=== PATIENT | male | born 2000 | race African-American/Black ===

== ENCOUNTER → 2020-11-28 06:34 | Outpatient (CLI) | payer OTHER, SELFPAY ==
[2020-11-28 20:06] LABS: SARS-CoV-2 RNA PCR Negative
== END ==
PROVIDERS: PCP Emergency Medicine; Visit Provider Emergency Medicine
DX: Z20.822 Contact with and (suspected) exposure to COVID-19 (principal); R09.89 Other specified symptoms and signs involving the circulatory and respiratory systems
CPT/HCPCS: C9803; U0003; U0005

== ENCOUNTER 2024-11-01 12:06 | Emergency (ER) | payer OTHER, SELFPAY ==
--- NOTE | ~2024-11-01 | CT_ITS ---
EXAMINATION: CT brain wo con DATE: 11/01/2024 13:47 INDICATION: Syncope TECHNIQUE: Computed tomography (CT) of the head was performed without intravenous contrast. Sagittal and coronal reconstructions were performed. The mA was adjusted according to patient size. Iterative reconstruction technique was employed. The dose-length product was 605.33 mGy-cm. COMPARISON: None FINDINGS: No acute intracranial hemorrhage, acute infarction or abnormal extra axial fluid collection. Ventricl es are normal and symmetric. No mass/mass effect. Mucosal thickening in the right maxillary sinus whi ch appears small with thickened sclerotic beyer consistent with sequela of chronic sinusitis. The orb its and mastoid air cells are normal. IMPRESSION: 1. Normal brain. Reviewed, dictated and finalized at location A. IMPRESSION: 1. Normal brain.
--- NOTE | ~2024-11-01 | XR_ITS ---
XR chest 2V Ordering provider: Ellie Hebert History: 23 years Male with . syncopal episode . Comparison: None. FINDINGS: MEDIASTINUM: The cardiac silhouette is not enlarged. LUNGS: No infiltrates, effusions or pneumothorax. OTHER: No free air under the diaphragm. IMPRESSION: No acute cardiopulmonary pathology. Reviewed, dictated and finalized at location A.
[2024-11-01 12:26] VITALS: BP 152/94; PULSE 96; RESP 21; O2SAT 100
--- NOTE | 2024-11-01 12:32 | ECG_ITS ---
Test Date: 2024-11-01 12:39:23 Measurements Intervals [place] Rate: 93 P: 45 IA: 156 QRS: 38 QRSD: 90 T: 36 QT: 361 QTc: 450 Interpretive Statements SINUS RHYTHM NONSPECIFIC T-WAVE ABNORMALITY- INFERIOR LEADS BASELINE ARTIFACT- II, III, AVL BORDERLINE ECG No previous ECG available for comparison Electronically Signed On 11-01-2024 12:53:09 CDT by Paul Butterfield D.O.
[2024-11-01 12:38] LABS: Glucose Point of Care 134 mg/dl (65-105)
[2024-11-01 12:50] VITALS: O2SAT 100
[2024-11-01 12:56] LABS: Basophils Percent Auto 0.4 % (0.2-1.2); Eosinophils Absolute Auto 0.1 K/mm3 (0-0.3); Eosinophils Percent Auto 1.3 % (0-4.4); Hematocrit 47.3 % (42.0-52.0); Hemoglobin 15.2 g/dL (14.0-18.0); Immature Granulocyte Absolute 0.05 K/mm3 (0.00-0.031); Immature Granulocyte Percent A 0.7 % (0-0.5); Lymphocytes Absolute Auto 2.22 K/mm3 (0.9-3.2); Lymphocytes Percent Auto 32.4 % (18.3-44.2); Mean Corpuscular HGB Conc 32.1 g/dl (32-36); Mean Corpuscular Volume 90.1 fl (80-100); Monocytes Absolute Auto 0.5 K/mm3 (0.1-0.6); Neutrophils Percent Auto 58.2 % (45.5-73.1); Platelet Count Result 253 k/mm3 (150-375); Red Blood Count 5.25 M/mm3 (4.6-6.20); Red Cell Distribution Width 14.4 % (11.5-14.5); White Blood Count 6.9 K/mm3 (4.5-10.0)
[2024-11-01 13:06] LABS: Alanine Aminotransferase 26 U/L (6-50); Alkaline Phosphatase 45 U/L (38-126); Anion Gap 11 mmol/L (4-12); Aspartate Amino Transferase 25 U/L (17-59); Bilirubin,Total 0.6 mg/dL (0.2-1.3); Blood Urea Nitrogen 10 mg/dL (9-20); Calcium 8.8 mg/dL (8.4-10.2); Carbon Dioxide 21 mmol/L (22-30); Chloride 107 mmol/L (98-107); Estimated CRCL calculation 137 ml/min; Estimated Glomerular Filt Rate > 60; Glucose 139 mg/dL (65-110); Potassium 3.6 mmol/L (3.4-5.0); Sodium 139 mmol/L (137-145)
[2024-11-01 13:31] VITALS: BP 141/82; PULSE 82; RESP 18; O2SAT 100
[2024-11-01] MEDS: ONDANSETRON INJ 4 MG/2 ML VIAL IV PUSH (13:42)
[2024-11-01 13:54] LABS: Ethanol < 10 mg/dL (<10)
[2024-11-01 14:09] LABS: Troponin I < 0.012 ng/mL (0.000-0.034)
--- NOTE | 2024-11-01 14:09 | ED.SYNCOPE ---
HPI - Syncope General Chief Complaint: Syncope Stated Complaint: Abd pain, shortness of breath, confusion Time Seen by Provider: 11/01/24 13:30 History of Present Illness HPI narrative: 23-year-old otherwise healthy male presenting to the emergency department after an unwitnessed syncopal event at home. Patient states that he was otherwise in his normal state of health recently. No recent injuries, illnesses or hospital visits. He was up late in the evening and into this morning till 6:00 a.m. playing video games. He was found semiconscious and appeared postictal when family heard a loud thud and went upstairs to investigate. Patient was in out of consciousness and not able to articulate was going on. This lasted for about 10-20 minutes and then he regained full consciousness. He does not remember the event. Does not remember waking up this morning. Denies any fever, chills, endorses some mild headache diffusely and some nauseousness. No abdominal pain, chest pain, shortness a breath, back pain. He was otherwise in her normal state of health. He endorses some pain in his mouth on the right side. No history of seizures. No history of febrile seizure in childhood. No history of epilepsy. No family history of epilepsy. Related Data Allergies Allergy/AdvReac Type Severity Reaction Status Date / Time No Known Allergies Allergy Verified 11/01/24 12:09 Review of Systems Review of Systems: As reviewed above in HPI Exam Narrative: GENERAL: [Well-appearing, well-nourished, and in no acute distress.] HEAD: [Normocephalic, atraumatic.] EYES: [PERRLA and EOMI.] ENT: Nares clear, no rhinorrhea or epistaxis. Mucous membranes moist. There appears to be a lateral tongue abrasion on the right side without any bleeding or laceration. NECK: Supple. CHEST: [Clear to auscultation. No respiratory distress.] HEART: [Regular rate and rhythm]. No murmur heard. [Normal peripheral pulses.] ABDOMEN: [Soft, nondistended], [nontender], [No rigidity or guarding] EXTREMITIES: Normal range of motion. [No edema.] SKIN: Warm, dry, no rash. NEURO: [No focal deficits]. Alert and oriented [x3.] Full range of motion of all extremities, normal strength and sensation throughout. PSYCH: [Normal mood and affect.] Course Vital Signs Vital signs: Vital Signs Pulse Rate 96 11/01/24 12:26 Respiratory Rate 21 H 11/01/24 12:26 Blood Pressure 152/94 H 11/01/24 12:26 Pulse Oximetry 100 11/01/24 12:26 Oxygen Delivery Room Air 11/01/24 12:26 Pulse Rate 86 11/01/24 15:23 Respiratory Rate 22 H 11/01/24 15:23 Blood Pressure 142/99 H 11/01/24 15:23 Pulse Oximetry 97 11/01/24 15:23 Oxygen Delivery Room Air 11/01/24 12:50 MDM - Syncope MDM Narrative Medical decision making narrative: 23-year-old otherwise healthy male presenting with an unwitnessed syncopal event suspicious for potential for seizure. Patient was otherwise in her normal state of health, up until 6 in the morning playing video games and then family found him after hearing a loud thought and a fall upstairs. This happened around 11:00 a.m.. Patient was in and out of consciousness and appeared postictal for about 10-20 minutes before regaining full consciousness. Does not remember the event. Does have a lateral tongue abrasion on the right side and history that seems consistent with potential first-time seizure. Likely triggered by being up late in the evening and waking up early. Patient has no family history of seizure disorder, no history of epilepsy or febrile seizures in childhood. He otherwise appears well, not any acute distress. Vital signs are within normal limits aside from some mild elevated blood pressure. Not severe range. Given this is a first-time seizure event will also investigate other causes such as potential vasovagal event, dehydration, cardiac syncope although less likely. Broad workup was ordered including CBC, CMP, troponin, alcohol level, chest x-ray, CT of the head. He was given Zofran, Toradol and fluid bolus. 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 Upon re-evaluation patient had complete symptomatic resolution feeling significantly improved. No leukocytosis or anemia. Normal platelet count. Electrolytes unremarkable. Normal anion gap. Normal glucose. Normal LFTs and renal function. Negative troponin. Negative alcohol level. Chest x-ray without any findings. CT head without any acute intracranial process. EKG with sinus rhythm, no signs of ectopy or ischemia. Patient's historical features and clinical exam were consistent with a first-time seizure. I discussed the case with the on-call neurologist Dr. Rizvi who will see him on outpatient basis. No indications start medications at this time as he has been monitored in the ED without any recurrent seizure activity and was likely provoked base based on history. I discussed with the patient and the family driving restrictions as well as close follow-up with Neurology which they verbalized understanding. They were told to return if there is any recurrent seizure activity or any new concerns before seeing the neurologist. Patient and family comfortable with discharge home at this time. Medical Records Attestation: I reviewed the patient's medical records. Lab Data Attestation: I reviewed the patient's lab results. 11/01/24 12:48 11/01/24 12:48 Labs: Lab Results 11/01/24 11/01/24 11/01/24 Range/Units 12:35 12:48 16:19 WBC 6.9 (4.5-10.0) K/mm3 RBC 5.25 (4.6-6.20) M/mm3 Hgb 15.2 (14.0-18.0) g/dL Hct 47.3 (42.0-52.0) % MCV 90.1 (80-100) fl MCH 29.0 (26-34) pg MCHC 32.1 (32-36) g/dl RDW 14.4 (11.5-14.5) % Plt Count 253 (150-375) k/mm3 MPV 9.0 (7.4-10.4) fl Immature Gran % (Auto) 0.7 H (0-0.5) % Neut % (Auto) 58.2 (45.5-73.1) % Lymph % (Auto) 32.4 (18.3-44.2) % [place] % (Auto) 7.0 (2.6-8.5) % Eos % (Auto) 1.3 (0-4.4) % Baso % (Auto) 0.4 (0.2-1.2) % Lymph # (Auto) 2.22 (0.9-3.2) K/mm3 [place] # (Auto) 0.5 (0.1-0.6) K/mm3 Eos # (Auto) 0.1 (0-0.3) K/mm3 Baso # (Auto) 0.0 (0.0-0.1) K/mm3 Abs Immat Gran (auto) 0.05 H (0.00-0.031) K/mm3 Absolute Neuts (auto) 4.0 (1.3-6.7) K/mm3 Absolute Nucleated RBC 0.000 (0.0-0.012) K/mm3 Nucleated RBC % 0.0 (0.0-0.2) % Sodium 139 (137-145) mmol/L Potassium 3.6 (3.4-5.0) mmol/L Chloride 107 (98-107) mmol/L Carbon Dioxide 21 L (22-30) mmol/L Anion Gap 11 (4-12) mmol/L BUN 10 (9-20) mg/dL Creatinine 1.05 (0.7-1.3) mg/dL Estim Creat Clear Calc 137 ml/min Estimated GFR > 60 (59 - ) Glucose 139 H (65-110) mg/dL POC Capillary Glucose 134 H (65-105) mg/dl Calcium 8.8 (8.4-10.2) mg/dL Total Bilirubin 0.6 (0.2-1.3) mg/dL AST 25 (17-59) U/L ALT 26 (6-50) U/L Alkaline Phosphatase 45 (38-126) U/L Troponin I < 0.012 Cancelled (0.000-0.034) ng/mL Total Protein 7.0 (6.3-8.2) g/dL Albumin 4.0 (3.5-5.1) g/dL Ethyl Alcohol < 10 (<10) mg/dL Imaging Data Attestation: I personally reviewed and interpreted this imaging study as follows: My impression: Impressions Chest X-Ray 11/01/24 13:21 IMPRESSION: No acute cardiopulmonary pathology. Head CT 11/01/24 14:00 IMPRESSION: 1. Normal brain. Discharge Plan Discharge Clinical Impression: First time seizure Patient Disposition: Home Condition: Stable Instructions: Antibiotic Form, New-Onset Seizure in Adults (ED) Additional Instructions: Your laboratory studies and examination are reassuring. You likely had a first-time seizure provoked by the sleep deprivation and loud noises and flashing lights. We recommend refraining from driving or operating heavy machinery for up to 3 months since the last seizure or until you are cleared by the neurologist. Please call the provided neurologist for close outpatient visit. Return with any new seizure activity or any other concerns. Follow-up with your regular doctor as well as the Neurology team. Patient Language: Cypriot Follow-up/Referrals: Deanna Rizvi MD [Physician] - 1 Week (1st time seizure) Yonny Edwards MD [Primary Care Provider] - Time of Disposition: 16:41
[2024-11-01] MEDS: LACTATED RINGERS 1,000 ML 999 ML IV CONT (14:20)
[2024-11-01 14:21] VITALS: BP 156/105; PULSE 73; RESP 23; O2SAT 97
[2024-11-01] MEDS: KETOROLAC 15 MG/ML VIAL (*BKC) IV PUSH (14:21)
[2024-11-01 15:23] VITALS: BP 142/99; PULSE 86; RESP 22; O2SAT 97
[2024-11-01 17:01] VITALS: PULSE 86; RESP 19; TEMP 37; O2SAT 99
== END 2024-11-01 17:03 | disposition home or self-care (01) ==
PROVIDERS: General Practice; Emergency Provider Student in an Organized Health Care Education/Training Program; PCP Emergency Medicine
DX: R56.9 Unspecified convulsions (principal); R94.31 Abnormal electrocardiogram [ECG] [EKG]
CPT/HCPCS: 36415; 70450; 71046; 80053; 82077; 82948; 84484; 85025; 93005; 96361; 96374; 96375; 99284; J1885; J2405; J7120

== ENCOUNTER 2025-01-05 10:58 | Emergency (ER) | payer OTHER, SELFPAY ==
--- NOTE | ~2025-01-05 | XR_ITS ---
EXAMINATION: XR chest 2V DATE: 01/05/2025 12:21 INDICATION: Seizure. Nausea. TECHNIQUE: frontal and lateral views of the chest were obtained. COMPARISON: Chest radiograph dated 11/01/2024 FINDINGS: Evaluation of fine pulmonary parenchymal detail mildly limited by body habitus. No focal airspace opa cities, pulmonary edema, pleural effusion or pneumothorax. The cardiomediastinal silhouette is normal . IMPRESSION: 1. No acute cardiopulmonary disease. Reviewed, dictated and finalized at location A.
[2025-01-05 10:58] VITALS: BP 128/80; PULSE 96; RESP 11; O2SAT 92
[2025-01-05 11:05] VITALS: O2SAT 97
--- NOTE | 2025-01-05 11:07 | ECG_ITS ---
Test Date: 2025-01-05 11:09:03 Measurements Intervals [place] Rate: 86 P: 30 DC: 149 QRS: 11 QRSD: 87 T: 30 QT: 364 QTc: 436 Interpretive Statements SINUS RHYTHM NONSPECIFIC T-WAVE ABNORMALITY- INF/HIGH LAT LEADS BORDERLINE ECG Compared to ECG 11/01/2024 12:39:23 NO SIGNIFICANT CHANGE Electronically Signed On 01-05-2025 12:35:05 CDT by Paul Butterfield D.O.
[2025-01-05 11:19] LABS: Basophils Percent Auto 0.3 % (0.2-1.2); Eosinophils Absolute Auto 0.1 K/mm3 (0-0.3); Eosinophils Percent Auto 1.1 % (0-4.4); Hematocrit 46.8 % (42.0-52.0); Hemoglobin 14.4 g/dL (14.0-18.0); Immature Granulocyte Absolute 0.07 K/mm3 (0.00-0.031); Immature Granulocyte Percent A 0.8 % (0-0.5); Lymphocytes Absolute Auto 3.79 K/mm3 (0.9-3.2); Lymphocytes Percent Auto 42.6 % (18.3-44.2); Mean Corpuscular HGB Conc 30.8 g/dl (32-36); Mean Corpuscular Hemoglobin 28.2 pg (26-34); Mean Corpuscular Volume 91.6 fl (80-100); Mean Platelet Volume 9.1 fl (7.4-10.4); Monocytes Absolute Auto 0.6 K/mm3 (0.1-0.6); Monocytes Percent Auto 7.2 % (2.6-8.5); Neutrophils Absolute Auto 4.3 K/mm3 (1.3-6.7); Platelet Count Result 255 k/mm3 (150-375); Red Blood Count 5.11 M/mm3 (4.6-6.20); Red Cell Distribution Width 13.9 % (11.5-14.5); White Blood Count 8.9 K/mm3 (4.5-10.0)
[2025-01-05 11:30] LABS: Alanine Aminotransferase 28 U/L (6-50); Albumin Level 3.8 g/dL (3.5-5.1); Alkaline Phosphatase 38 U/L (38-126); Anion Gap 15 mmol/L (4-12); Aspartate Amino Transferase 30 U/L (17-59); Bilirubin,Total 0.3 mg/dL (0.2-1.3); Blood Urea Nitrogen 10 mg/dL (9-20); Calcium 8.7 mg/dL (8.4-10.2); Carbon Dioxide 16 mmol/L (22-30); Chloride 109 mmol/L (98-107); Estimated CRCL calculation 125 ml/min; Estimated Glomerular Filt Rate > 60; Glucose 165 mg/dL (65-110); Potassium 3.7 mmol/L (3.4-5.0); Sodium 140 mmol/L (137-145)
[2025-01-05 11:37] LABS: Lactic Acid Reflex 6.4 mmol/L (0.7-2.0)
[2025-01-05] MEDS: SODIUM CHLORIDE 0.9% IV 1,000 ML 999 ML IV CONT (11:40)
[2025-01-05 11:44] VITALS: O2SAT 95
--- NOTE | 2025-01-05 12:03 | ED_ITS ---
HPI - Seizure General Chief Complaint: Seizure Stated Complaint: ?seizure History of Present Illness HPI Narrative: Patient is a 24-year-old male who presents ER with concerns for seizure. Family heard patient follow up stairs went to check on. He had loss of consciousness that had a prolonged postictal period as witnessed by the EMS personnel. He has bruising to his tongue from tongue biting. He is coming around. Had a similar episode in October of 2024. He is scheduled to see a neurologist in a few days. He is not currently on anti epileptic medications. Patient does stay up late and plays video games. He also uses marijuana. No additional complaints or concerns at this time. Related Data Allergies Allergy/AdvReac Type Severity Reaction Status Date / Time No Known Allergies Allergy Verified 11/01/24 12:09 Review of Systems 2 Review of Systems: All systems reviewed & are unremarkable except as noted in HPI and below Constitutional: Constitutional: Reports no additional constitutional complaints ENT: Reports system reviewed and no additional complaints, except as documented Cardiovascular: Cardiovascular: Reports no additional cardiovascular complaints Respiratory: Respiratory: Reports no additional respiratory complaints Neurologic: Reports system reviewed and no additional complaints, except as documented PMFSH Past Medical History Medical History (Updated 01/05/25 @ 13:35 by Quique Carrasco MD) Seizures Exam 2 Narrative: GENERAL: Well-appearing, well-nourished, and in no acute distress. HEAD: Normocephalic, atraumatic. ENT: Mucous membranes moist. Bruising to the tongue most notable on the right side posterior aspect. NECK: Supple. CHEST: Clear to auscultation. No respiratory distress. HEART: Regular rate and rhythm. Normal peripheral pulses. ABDOMEN: Soft, nontender, nondistended. EXTREMITIES: Normal range of motion. No edema. SKIN: Warm, dry, no rash. NEURO: Alert and oriented x3. PSYCH: Normal mood and affect. Course Course Emergency Course: Patient resting comfortably. Informed of results. Discussed with Dr. Kimble. Patient will receive 1500 mg of Keppra IV bid be started all this a dose food twice food going forward. Discussed sleep hygiene, avoiding intoxicants, and the need for close follow-up with Neurology as previously scheduled. Patient hydrated. Lactate felt to be elevated due to seizure activity is not sepsis. Vital Signs Vital signs: Vital Signs Pulse Rate 96 01/05/25 10:58 Respiratory Rate 11 L 01/05/25 10:58 Blood Pressure 128/80 01/05/25 10:58 Pulse Oximetry 92 01/05/25 10:58 Oxygen Delivery Room Air 01/05/25 10:58 Pulse Rate 96 01/05/25 10:58 Respiratory Rate 11 L 01/05/25 10:58 Blood Pressure 128/80 01/05/25 10:58 Pulse Oximetry 95 01/05/25 11:44 Oxygen Delivery Room Air 01/05/25 11:05 MDM - Seizure Lab Data 01/05/25 11:10 01/05/25 11:10 Labs: Lab Results 01/05/25 01/05/25 01/05/25 Range/Units 11:10 11:11 13:23 WBC 8.9 (4.5-10.0) K/mm3 RBC 5.11 (4.6-6.20) M/mm3 Hgb 14.4 (14.0-18.0) g/dL Hct 46.8 (42.0-52.0) % MCV 91.6 (80-100) fl MCH 28.2 (26-34) pg MCHC 30.8 L (32-36) g/dl RDW 13.9 (11.5-14.5) % Plt Count 255 (150-375) k/mm3 MPV 9.1 (7.4-10.4) fl Immature Gran % (Auto) 0.8 H (0-0.5) % Neut % (Auto) 48.0 (45.5-73.1) % Lymph % (Auto) 42.6 (18.3-44.2) % [place] % (Auto) 7.2 (2.6-8.5) % Eos % (Auto) 1.1 (0-4.4) % Baso % (Auto) 0.3 (0.2-1.2) % Lymph # (Auto) 3.79 H (0.9-3.2) K/mm3 [place] # (Auto) 0.6 (0.1-0.6) K/mm3 Eos # (Auto) 0.1 (0-0.3) K/mm3 Baso # (Auto) 0.0 (0.0-0.1) K/mm3 Abs Immat Gran (auto) 0.07 H (0.00-0.031) K/mm3 Absolute Neuts (auto) 4.3 (1.3-6.7) K/mm3 Absolute Nucleated RBC 0.000 (0.0-0.012) K/mm3 Nucleated RBC % 0.0 (0.0-0.2) % Sodium 140 (137-145) mmol/L Potassium 3.7 (3.4-5.0) mmol/L Chloride 109 H (98-107) mmol/L Carbon Dioxide 16 L (22-30) mmol/L Anion Gap 15 H (4-12) mmol/L BUN 10 (9-20) mg/dL Creatinine 1.15 (0.7-1.3) mg/dL Estim Creat Clear Calc 125 ml/min Estimated GFR > 60 (59 - ) Glucose 165 H (65-110) mg/dL Lactic Acid 6.4 H* (0.7-2.0) mmol/L Calcium 8.7 (8.4-10.2) mg/dL Total Bilirubin 0.3 (0.2-1.3) mg/dL AST 30 (17-59) U/L ALT 28 (6-50) U/L Alkaline Phosphatase 38 (38-126) U/L Total Protein 7.0 (6.3-8.2) g/dL Albumin 3.8 (3.5-5.1) g/dL Urine Opiates Screen Pending Urine Methadone Screen Pending Ur Barbiturates Screen Pending Ur Phencyclidine Scrn Pending Ur Amphetamine Screen Pending U Benzodiazepines Scrn Pending Urine Cocaine Screen Pending U Cannabinoids Screen Pending Imaging Data Radiologist's impression: ITS Impressions Chest X-Ray 01/05/25 12:22 IMPRESSION: 1. No acute cardiopulmonary disease. ECG Data EKG #1: ECG completion date: 01/05/25 ECG completion time: 11:09 EKG Interpretation: normal rate (86), sinus rhythm, non-specific ST changes, normal QRS, normal QT and NL axis Discharge Plan Discharge Clinical Impression: Recurrent seizures Patient Disposition: Home Condition: Stable Instructions: Antibiotic Form, New-Onset Seizure in Adults (ED) Additional Instructions: Return ER if you are having recurrent seizure activity, you develop chest pain shortness of breath, you cannot keep down food water, you have additional concerns. Avoid any drug use. Make sure to get good sleep. Your nausea Dr. a motorized due there is 6 1 seizure-free and released by Neurology. Patient Language: Urdu Prescriptions: New levetiracetam [Keppra] 750 mg tablet 1,500 mg PO BID 14 Days Qty: 56 0RF Follow-up/Referrals: Rikc Kimble MD [Physician] - 1 Week Yonny Edwards MD [Primary Care Provider] -
[2025-01-05] MEDS: levETIRAcetam 1500MG/NACL100ML 1,500 MG/100 ML BAG 400 MG IVPB (12:44)
[2025-01-05] MEDS: ACETAMINOPHEN 325 MG TABLET 650 MG PO (13:12)
[2025-01-05 13:14] LABS: Reflex Lactic Acid Yes or No Add Lactic
[2025-01-05 13:43] LABS: Lactic Acid 1.9 mmol/L (0.7-2.0)
[2025-01-05 13:49] LABS: Amphetamine Screen Urine Negative (Negative); Barbiturate Screen Urine Negative (Negative); Benzodiazepines Screen Urine Negative (Negative); Cannabinoid Screen Urine Positive (Negative); Cocaine Screen Urine Negative (Negative); Methadone Screen Urine Negative (Negative); Opiate Screen Urine Negative (Negative); Phencyclidine Screen Urine Negative (Negative)
== END 2025-01-05 14:04 | disposition home or self-care (01) ==
PROVIDERS: Emergency Provider Emergency Medicine; PCP Emergency Medicine
DX: R56.9 Unspecified convulsions (principal); R94.31 Abnormal electrocardiogram [ECG] [EKG]
CPT/HCPCS: 36415; 71046; 80053; 80307; 83605; 85025; 93005; 96361; 96374; 99284; A9270; J1953; J7030

== ENCOUNTER 2025-02-06 11:55 | Emergency (ER) | payer OTHER, SELFPAY ==
[2025-02-06] VITALS (15 sets, daily range): BP systolic 138–146; BP diastolic 88–113; PULSE 70–108; RESP 15–30; TEMP 36.6; O2SAT 94–99
--- NOTE | 2025-02-06 12:51 | ECG_ITS ---
Test Date: 2025-02-06 12:00:01 Measurements Intervals [place] Rate: 103 P: 50 NM: 136 QRS: 26 QRSD: 90 T: 52 QT: 344 QTc: 451 Interpretive Statements SINUS TACHYCARDIA POSSIBLE LEFT ATRIAL ENLARGEMENT [-0.1mV P-WAVE IN V1/V2] ABNORMAL RHYTHM ECG Compared to ECG 01/05/2025 11:09:03 Electronically Signed On 02-06-2025 18:00:01 CDT by Fausto Varner M.D.
--- NOTE | 2025-02-06 12:55 | ED_ITS ---
HPI - General Adult General Chief complaint: Seizure Stated complaint: postictal Time Seen by Provider: 02/06/25 12:36 History of Present Illness HPI narrative: 24-year-old male with history of seizure disorder and medication noncompliance presents to the emergency department for evaluation after having a seizure this morning. Patient states he was up late and was drinking. Brother noticed that the bed was shaking and woke up to found the patient having a seizure. Patient was postictal after the seizure. EMS was called. Upon arrival emergency department patient denies any pain or complaints. Patient states he has been noncompliant with taking his Keppra because he does not like to take medications. Patient also was supposed to have follow-up with Neurology never did. Related Data Allergies Allergy/AdvReac Type Severity Reaction Status Date / Time No Known Allergies Allergy Verified 02/06/25 12:08 Review of Systems 2 Review of Systems: All systems reviewed & are unremarkable except as noted in HPI and below PMFSH Past Medical History Medical History (Updated 02/06/25 @ 13:53 by Nakul Carrillo MD) Exogenous obesity Obstructive sleep apnea syndrome Seizures Social History Social History (Updated 01/10/25 @ 16:37 by Siobhan Doan CNA) Social History: cannabis Smoking status: Smoker, status unknown Alcohol intake: never Substance use: current Substance use type: marijuana Do You Feel Safe in your Home?: Yes Lack of Transportation: No Lack of Food: Never True Current Housing: I Have Housing Concerned About Future Housing: No Difficulty Paying Gas/Electric Bills: No Difficulty Paying for Meds: No Exam 2 Narrative: APPEARANCE: Well appearing, no pain, no distress, well-nourished. HEAD: normocephalic, atraumatic. EYES: PERRLA/EOMI, conjunctivae clear. NOSE: Normal no drainage EARS:TMS clear with good light reflex. THROAT: Pharynx clear, no exudate. NECK: Supple. No adenopathy, no masses. RESPIRATORY: Airway patent, respirations nonlabored. Clear to auscultation bilaterally, no rales, rhonchi, wheezing. CARDIOVASCULAR: Regular rate and rhythm without murmurs rubs or gallops. ABDOMINAL: Soft, nontender, nondistended, normal bowel sounds MUSCULOSKELETAL: Moves all extremities. Strength/ROM intact, No edema, No calf tenderness. NEURO: Alert. Cranial nerves II through XII intact. Good gait. Good coordination SKIN: Warm, dry. Normal Color Course Vital Signs Vital signs: Vital Signs Temperature 97.9 F 02/06/25 12:01 Pulse Rate 105 H 02/06/25 12:01 Respiratory Rate 20 02/06/25 12:01 Blood Pressure 138/88 02/06/25 12:01 Pulse Oximetry 94 02/06/25 12:01 Oxygen Delivery Room Air 02/06/25 12:01 Temperature 97.9 F 02/06/25 12:01 Pulse Rate 73 02/06/25 14:30 Respiratory Rate 22 H 02/06/25 14:30 Blood Pressure 139/113 H 02/06/25 12:31 Pulse Oximetry 99 02/06/25 14:30 Oxygen Delivery Room Air 02/06/25 12:01 Medical Decision Making MDM Narrative Medical decision making narrative: 24-year-old male presents emergency department for evaluation for seizure. Patient does have a known seizure disorder and has been noncompliant with both neurology follow-up and with taking his seizure medications. Patient reports he was up late last night drinking alcohol. Patient is currently afebrile with no leukocytosis hemoglobin of 14.7. Patient has no significant abnormalities on his CMP patient was treated with 1 g of IV Keppra in the ED. Patient will be discharged home with a refill for his Keppra of 750 mg b.i.d.. Also be provided follow-up with Neurology. Differential Diagnosis Differential Diagnosis: Medication noncompliance, epilepsy, subdural hematoma, subarachnoid hemorrhage, shoulder dislocation, tongue laceration Vital Signs Vital Signs: Vital Signs Temperature 97.9 F 02/06/25 12:01 Pulse Rate 105 H 02/06/25 12:01 Respiratory Rate 20 02/06/25 12:01 Blood Pressure 138/88 02/06/25 12:01 Pulse Oximetry 94 02/06/25 12:01 Oxygen Delivery Room Air 02/06/25 12:01 Temperature 97.9 F 02/06/25 12:01 Pulse Rate 73 02/06/25 14:30 Respiratory Rate 22 H 02/06/25 14:30 Blood Pressure 139/113 H 02/06/25 12:31 Pulse Oximetry 99 02/06/25 14:30 Oxygen Delivery Room Air 02/06/25 12:01 Lab Data Lab results reviewed: Yes I reviewed the patient's lab results. 02/06/25 13:02 02/06/25 13:02 Labs: Lab Results 02/06/25 Range/Units 13:02 WBC 7.7 (4.5-10.0) K/mm3 RBC 5.19 (4.6-6.20) M/mm3 Hgb 14.7 (14.0-18.0) g/dL Hct 45.9 (42.0-52.0) % MCV 88.4 (80-100) fl MCH 28.3 (26-34) pg MCHC 32.0 (32-36) g/dl RDW 14.4 (11.5-14.5) % Plt Count 258 (150-375) k/mm3 MPV 9.0 (7.4-10.4) fl Immature Gran % (Auto) 0.4 (0-0.5) % Neut % (Auto) 66.8 (45.5-73.1) % Lymph % (Auto) 22.7 (18.3-44.2) % [place] % (Auto) 9.2 H (2.6-8.5) % Eos % (Auto) 0.5 (0-4.4) % Baso % (Auto) 0.4 (0.2-1.2) % Lymph # (Auto) 1.75 (0.9-3.2) K/mm3 [place] # (Auto) 0.7 H (0.1-0.6) K/mm3 Eos # (Auto) 0.0 (0-0.3) K/mm3 Baso # (Auto) 0.0 (0.0-0.1) K/mm3 Abs Immat Gran (auto) 0.03 (0.00-0.031) K/mm3 Absolute Neuts (auto) 5.1 (1.3-6.7) K/mm3 Absolute Nucleated RBC 0.000 (0.0-0.012) K/mm3 Nucleated RBC % 0.0 (0.0-0.2) % Sodium 139 (137-145) mmol/L Potassium 3.9 (3.4-5.0) mmol/L Chloride 109 H (98-107) mmol/L Carbon Dioxide 22 (22-30) mmol/L Anion Gap 8 (4-12) mmol/L BUN 8 L (9-20) mg/dL Creatinine 1.01 (0.7-1.3) mg/dL Estim Creat Clear Calc 142 ml/min Estimated GFR > 60 (59 - ) Glucose 112 H (65-110) mg/dL Calcium 9.0 (8.4-10.2) mg/dL Total Bilirubin 0.4 (0.2-1.3) mg/dL AST 31 (17-59) U/L ALT 27 (6-50) U/L Alkaline Phosphatase 43 (38-126) U/L Total Protein 7.2 (6.3-8.2) g/dL Albumin 3.9 (3.5-5.1) g/dL ECG Data EKG #1: EKG Interpretation: normal rate, tachycardia, no ectopy, non-specific ST changes, normal QRS, normal QT and NL axis Discharge Plan Discharge Clinical Impression: Epileptic seizure Patient Disposition: Home Condition: Stable Instructions: Antibiotic Form, Epilepsy (ED) Additional Instructions: Take your Keppra as directed. Have close follow-up with Neurology. Avoid sleep deprivation and alcohol consumption. If you have any worsening symptoms then please call or return to the emergency department. Patient Language: German Prescriptions: New levetiracetam [Keppra] 750 mg tablet 750 mg PO BID 30 Days Qty: 60 0RF No Action levetiracetam [Keppra] 750 mg tablet 1,500 mg PO BID 14 Days Qty: 120 3RF Follow-up/Referrals: Deanna Rizvi MD [Physician] - PHYSICIAN,MULTI CRAFT MAINTENANCE TECHNICIAN [Primary Care Provider] -
[2025-02-06 13:10] LABS: Hematocrit 45.9 % (42.0-52.0); Hemoglobin 14.7 g/dL (14.0-18.0); Immature Granulocyte Percent A 0.4 % (0-0.5); Lymphocytes Absolute Auto 1.75 K/mm3 (0.9-3.2); Mean Corpuscular HGB Conc 32.0 g/dl (32-36); Mean Corpuscular Hemoglobin 28.3 pg (26-34); Mean Corpuscular Volume 88.4 fl (80-100); Nucleated Red Blood Cells Absolute Auto 0.000 K/mm3 (0.0-0.012); Nucleated Red Blood Cells Perc 0.0 % (0.0-0.2); Platelet Count Result 258 k/mm3 (150-375); Red Blood Count 5.19 M/mm3 (4.6-6.20); White Blood Count 7.7 K/mm3 (4.5-10.0)
[2025-02-06] MEDS: levETIRAcetam 1000MG/NACL100ML 1,000 MG/100 ML BAG 400 MG IVPB (13:10)
[2025-02-06 13:29] LABS: Alanine Aminotransferase 27 U/L (6-50); Albumin Level 3.9 g/dL (3.5-5.1); Alkaline Phosphatase 43 U/L (38-126); Anion Gap 8 mmol/L (4-12); Aspartate Amino Transferase 31 U/L (17-59); Bilirubin,Total 0.4 mg/dL (0.2-1.3); Blood Urea Nitrogen 8 mg/dL (9-20); Calcium 9.0 mg/dL (8.4-10.2); Carbon Dioxide 22 mmol/L (22-30); Chloride 109 mmol/L (98-107); Estimated CRCL calculation 142 ml/min; Estimated Glomerular Filt Rate > 60; Glucose 112 mg/dL (65-110); Potassium 3.9 mmol/L (3.4-5.0); Sodium 139 mmol/L (137-145); Total Protein 7.2 g/dL (6.3-8.2)
== END 2025-02-06 15:14 | disposition home or self-care (01) ==
PROVIDERS: Emergency Provider Emergency Medicine
DX: G40.909 Epilepsy, unspecified, not intractable, without status epilepticus (principal); T42.6X6A Underdosing of other antiepileptic and sedative-hypnotic drugs, initial encounter; Z91.128 Patient's intentional underdosing of medication regimen for other reason; G47.33 Obstructive sleep apnea (adult) (pediatric); E66.09 Other obesity due to excess calories; Z68.43 Body mass index [BMI] 50.0-59.9, adult; R94.31 Abnormal electrocardiogram [ECG] [EKG]; R00.0 Tachycardia, unspecified
CPT/HCPCS: 36415; 80053; 85025; 93005; 96374; 99284; J1953

== ENCOUNTER 2025-03-21 20:54 | Emergency (ER) | payer OTHER, SELFPAY ==
[2025-03-21] VITALS (11 sets, daily range): BP systolic 133–161; BP diastolic 68–105; PULSE 54–82; RESP 12–22; TEMP 36.8; O2SAT 97–100
[2025-03-21] MEDS: SODIUM CHLORIDE 0.9% IV 1,000 ML 999 ML IV CONT (21:39)
[2025-03-21 21:47] LABS: Hematocrit 48.0 % (42.0-52.0); Hemoglobin 15.3 g/dL (14.0-18.0); Immature Granulocyte Percent A 0.5 % (0-0.5); Lymphocytes Absolute Auto 1.62 K/mm3 (0.9-3.2); Mean Corpuscular HGB Conc 31.9 g/dl (32-36); Mean Corpuscular Hemoglobin 28.1 pg (26-34); Mean Corpuscular Volume 88.2 fl (80-100); Nucleated Red Blood Cells Absolute Auto 0.000 K/mm3 (0.0-0.012); Nucleated Red Blood Cells Perc 0.0 % (0.0-0.2); Platelet Count Result 260 k/mm3 (150-375); Red Blood Count 5.44 M/mm3 (4.6-6.20); White Blood Count 8.0 K/mm3 (4.5-10.0)
[2025-03-21 22:06] LABS: Alanine Aminotransferase 27 U/L (6-50); Albumin Level 4.3 g/dL (3.5-5.1); Alkaline Phosphatase 46 U/L (38-126); Anion Gap 7 mmol/L (4-12); Aspartate Amino Transferase 29 U/L (17-59); Bilirubin,Total 0.6 mg/dL (0.2-1.3); Blood Urea Nitrogen 8 mg/dL (9-20); Calcium 9.3 mg/dL (8.4-10.2); Carbon Dioxide 24 mmol/L (22-30); Chloride 107 mmol/L (98-107); Estimated CRCL calculation 140 ml/min; Estimated Glomerular Filt Rate > 60; Glucose 93 mg/dL (65-110); Potassium 3.9 mmol/L (3.4-5.0); Sodium 138 mmol/L (137-145); Total Protein 7.6 g/dL (6.3-8.2)
--- NOTE | 2025-03-21 22:42 | ED.SEIZURE ---
HPI - Seizure General Chief Complaint: Seizure Stated Complaint: seizure Time Seen by Provider: 03/21/25 21:55 Source: patient Mode of arrival: ambulatory Limitations: no limitations History of Present Illness HPI Narrative: This is a 24 year old male that presents to the ER for evaluation after having a seizure today. Reports known history of seizure disorder. He has not been taking his medications as prescribed. Reports he did bite his tongue. He was in bed when this happened. No sustained injuries. Related Data Allergies Allergy/AdvReac Type Severity Reaction Status Date / Time No Known Allergies Allergy Verified 03/21/25 21:04 Review of Systems Review of Systems: All systems reviewed & are unremarkable except as noted in HPI and below PMFSH Past Medical History Medical History (Updated 03/22/25 @ 00:02 by Milli Sewell PA-C) Exogenous obesity Obstructive sleep apnea syndrome Seizures Social History Social History (Updated 01/10/25 @ 16:37 by Siobhan Doan CNA) Social History: cannabis Smoking status: Smoker, status unknown Alcohol intake: never Substance use: current Substance use type: marijuana Do You Feel Safe in your Home?: Yes Lack of Transportation: No Lack of Food: Never True Current Housing: I Have Housing Concerned About Future Housing: No Difficulty Paying Gas/Electric Bills: No Difficulty Paying for Meds: No Exam Narrative: GENERAL: Well-appearing, well-nourished, and in no acute distress. HEAD: Normocephalic, atraumatic. EYES: PERRLA and EOMI. ENT: Nares clear, no rhinorrhea or epistaxis. Mucous membranes moist. Oropharynx without tonsillar hypertrophy exudate or other lesions. NECK: Supple. No adenopathy or masses. CHEST: Clear to auscultation. No respiratory distress. No wheezes rales or rhonchi HEART: Regular rate and rhythm. No murmur heard. Normal peripheral pulses. ABDOMEN: Soft, nontender, nondistended, normal active bowel sounds. EXTREMITIES: Normal range of motion. No edema. SKIN: Warm, dry, no rash. NEURO: No focal deficits. Alert and oriented x3. CN II-XII grossly intact PSYCH: Normal mood and affect Course Course Emergency Course: patient and family updated on his workup and agree with plan of care Vital Signs Vital signs: Vital Signs Temperature 98.2 F 03/21/25 20:55 Pulse Rate 64 03/21/25 20:55 Respiratory Rate 20 03/21/25 20:55 Blood Pressure 144/105 H 03/21/25 20:55 Pulse Oximetry 97 03/21/25 20:55 Oxygen Delivery Room Air 03/21/25 20:55 Temperature 98.2 F 03/21/25 20:55 Pulse Rate 78 03/21/25 23:08 Respiratory Rate 22 H 03/21/25 23:05 Blood Pressure 156/89 H 03/21/25 23:08 Pulse Oximetry 100 03/21/25 23:05 Oxygen Delivery Room Air 03/21/25 21:07 MDM - Seizure MDM Narrative Medical decision making narrative: Patient presents to the emergency department after a seizure today. Has known history of seizure disorder, admits to not taking his medication as prescribed. Patient is afebrile and nontoxic appearing. His vitals are stable. CBC and metabolic panel without concerning findings. Drug screen positive for cannabinoids. Influenza, RSV and COVID screens are negative. Patient given dose of Keppra IV in the ER. Instructed on the importance of continuing his medication as prescribed. Will be given follow-up with Neurology. He was given warnings to return to the ER Differential Diagnosis Differential diagnosis: Likely focal seizure, generalized seizure and other (Medication noncompliance) Lab Data Attestation: I reviewed the patient's lab results. 03/21/25 21:38 03/21/25 21:38 Labs: Lab Results 03/21/25 03/21/25 03/21/25 Range/Units 21:38 22:05 22:45 WBC 8.0 (4.5-10.0) K/mm3 RBC 5.44 (4.6-6.20) M/mm3 Hgb 15.3 (14.0-18.0) g/dL Hct 48.0 (42.0-52.0) % MCV 88.2 (80-100) fl MCH 28.1 (26-34) pg MCHC 31.9 L (32-36) g/dl RDW 14.0 (11.5-14.5) % Plt Count 260 (150-375) k/mm3 MPV 9.5 (7.4-10.4) fl Immature Gran % (Auto) 0.5 (0-0.5) % Neut % (Auto) 70.5 (45.5-73.1) % Lymph % (Auto) 20.1 (18.3-44.2) % [place] % (Auto) 8.3 (2.6-8.5) % Eos % (Auto) 0.4 (0-4.4) % Baso % (Auto) 0.2 (0.2-1.2) % Lymph # (Auto) 1.62 (0.9-3.2) K/mm3 [place] # (Auto) 0.7 H (0.1-0.6) K/mm3 Eos # (Auto) 0.0 (0-0.3) K/mm3 Baso # (Auto) 0.0 (0.0-0.1) K/mm3 Abs Immat Gran (auto) 0.04 H (0.00-0.031) K/mm3 Absolute Neuts (auto) 5.7 (1.3-6.7) K/mm3 Absolute Nucleated RBC 0.000 (0.0-0.012) K/mm3 Nucleated RBC % 0.0 (0.0-0.2) % Sodium 138 (137-145) mmol/L Potassium 3.9 (3.4-5.0) mmol/L Chloride 107 (98-107) mmol/L Carbon Dioxide 24 (22-30) mmol/L Anion Gap 7 (4-12) mmol/L BUN 8 L (9-20) mg/dL Creatinine 1.00 (0.7-1.3) mg/dL Estim Creat Clear Calc 140 ml/min Estimated GFR > 60 (59 - ) Glucose 93 (65-110) mg/dL Calcium 9.3 (8.4-10.2) mg/dL Total Bilirubin 0.6 (0.2-1.3) mg/dL AST 29 (17-59) U/L ALT 27 (6-50) U/L Alkaline Phosphatase 46 (38-126) U/L Total Protein 7.6 (6.3-8.2) g/dL Albumin 4.3 (3.5-5.1) g/dL Urine Color Yellow (Yellow) Urine Appearance Clear (Clear) Urine pH 8.5 (5.0-9.0) Ur Specific [place] 1.019 (1.001-1.035) Urine Protein Trace (Negative) mg/dL Urine Glucose (UA) Negative (Negative) mg/dL Urine Ketones Negative (Negative) mg/dL Ur Blood (Man) Negative (Negative) Urine Nitrate Negative (Negative) Urine Bilirubin Negative (Negative) Urine Urobilinogen 1.0 (<2.0) mg/dL Leukocyte Esterase Rfl Trace H (Negative) ELISABETH/UL Urine RBC 0-2 (0-2) /hpf Urine WBC 0-5 (0-3) /hpf Ur Squamous Epith Cells None seen (Few) /hpf Urine Bacteria None seen /hpf Urine Casts 0-2 Urine Opiates Screen Negative (Negative) Urine Methadone Screen Negative (Negative) Ur Barbiturates Screen Negative (Negative) Ur Phencyclidine Scrn Negative (Negative) Ur Amphetamine Screen Negative (Negative) U Benzodiazepines Scrn Negative (Negative) Urine Cocaine Screen Negative (Negative) U Cannabinoids Screen Positive A (Negative) Ethyl Alcohol < 10 (<10) mg/dL Influenza A (RT-PCR) Negative (Negative) Influenza B (RT-PCR) Negative (Negative) RSV (RT-PCR) Negative (Negative) SARS-CoV-2 RNA (RT-PCR) Negative (Negative) Critical Care Time Critical Care Time Critical Care Time: No Discharge Plan Discharge Clinical Impression: Seizure disorder Patient Disposition: Home Condition: Stable Instructions: Recurrent Seizures in Adults (ED) Additional Instructions: Return to the emergency department if you experience fever, chest pain, shortness of breath, abdominal pain with nausea and vomiting, weakness, numbness, or any other symptoms that are concerning to you. Take your Keppra as prescribed Follow up with neurology Patient Language: Italian Prescriptions: New levetiracetam [Keppra] 750 mg tablet 1,500 mg PO BID 30 Days Qty: 120 0RF No Action levetiracetam [Keppra] 750 mg tablet 1,500 mg PO BID 14 Days Qty: 120 3RF levetiracetam [Keppra] 750 mg tablet 750 mg PO BID 30 Days Qty: 60 0RF Follow-up/Referrals: Deanna Rizvi MD [Physician, Neurology] PHYSICIAN,TOWER EXCAVATOR OPERATOR [Primary Care Provider, Internal Medicine]
[2025-03-21] MEDS: levETIRAcetam 1500MG/NACL100ML 1,500 MG/100 ML BAG 400 MG IVPB (22:44)
[2025-03-21 22:46] LABS: Influenza A QL RT-PCR Negative (Negative); Influenza B QL RT-PCR Negative (Negative); RSV RNA, RT-PCR Negative (Negative); SARS-CoV-2 RNA PCR Negative (Negative)
[2025-03-21 22:58] LABS: Add Urine Microscopic? YES; Appearance Urine Clear (Clear); Glucose Urine UA Negative (Negative); Leukocyte Esterase Ur Trace LEU/UL (Negative); Nitrate Urine Negative (Negative); Non Pathogenic Casts 0-2; Specific Grav Ur 1.019 (1.001-1.035)
[2025-03-21 23:21] LABS: Cannabinoid Screen Urine Positive (Negative)
[2025-03-22 00:17] VITALS: BP 127/69; PULSE 78; RESP 20; O2SAT 100
== END 2025-03-22 00:18 | disposition home or self-care (01) ==
PROVIDERS: Emergency Medicine; Emergency Provider Physician Assistant
DX: G40.909 Epilepsy, unspecified, not intractable, without status epilepticus (principal); Z11.52 Encounter for screening for COVID-19; G47.33 Obstructive sleep apnea (adult) (pediatric); E66.09 Other obesity due to excess calories; Z68.43 Body mass index [BMI] 50.0-59.9, adult; T42.6X6A Underdosing of other antiepileptic and sedative-hypnotic drugs, initial encounter
CPT/HCPCS: 36415; 80053; 80307; 81001; 82077; 85025; 87637; 96365; 99284; J1953; J7030

== ENCOUNTER 2025-07-08 23:38 | Emergency (ER) | payer OTHER, SELFPAY ==
--- NOTE | ~2025-07-08 | CT_ITS ---
CT HEAD NON-CONTRAST Clinical History: head injury Comparison: 11/01/2024 Technique: Unenhanced axial images skull base to vertex Coronal, sagittal reformats CT images acquired with automatic exposure control for dose reduction DLP: 681 mGy-cm Findings: Sulci, ventricles: Unremarkable. No intracerebral hemorrhage. No evidence acute territorial infarct. No mass effect, midline shift. Bony calvarium intact. Visualized paranasal sinuses: Clear. Mastoid air cells: Clear. IMPRESSION: 1. No acute intracranial findings. Reviewed, dictated and finalized at location R. [facility] [employer]
[2025-07-08 23:53] VITALS: BP 124/82; PULSE 94; RESP 18; TEMP 36.4; O2SAT 98
--- NOTE | 2025-07-09 00:07 | ECG_ITS ---
Test Date: 2025-07-09 01:18:24 Measurements Intervals [place] Rate: 74 P: 35 VT: 157 QRS: 24 QRSD: 97 T: 8 QT: 385 QTc: 427 Interpretive Statements SINUS RHYTHM MINIMAL Q WAVES- HIGH LATERAL LEADS BORDERLINE ECG Compared to ECG 02/06/2025 12:00:01 HEART RATE HAS DECREASED Electronically Signed On 07-09-2025 09:23:09 [employer] by Paul Butterfield D.O.
[2025-07-09] MEDS: levETIRAcetam 1500MG/NACL100ML 1,500 MG/100 ML BAG 400 MG IVPB (00:42)
[2025-07-09 00:46] LABS: Hematocrit 47.7 % (42.0-52.0); Hemoglobin 15.6 g/dL (14.0-18.0); Immature Granulocyte Percent A 1.4 % (0-0.5); Lymphocytes Absolute Auto 1.79 K/mm3 (0.9-3.2); Mean Corpuscular HGB Conc 32.7 g/dl (32-36); Mean Corpuscular Hemoglobin 28.7 pg (26-34); Mean Corpuscular Volume 87.8 fl (80-100); Nucleated Red Blood Cells Absolute Auto 0.000 K/mm3 (0.0-0.012); Nucleated Red Blood Cells Perc 0.0 % (0.0-0.2); Platelet Count Result 246 k/mm3 (150-375); Red Blood Count 5.43 M/mm3 (4.6-6.20); White Blood Count 8.5 K/mm3 (4.5-10.0)
[2025-07-09 01:04] LABS: Alanine Aminotransferase 27 U/L (6-50); Albumin Level 4.4 g/dL (3.5-5.1); Alkaline Phosphatase 44 U/L (38-126); Anion Gap 8 mmol/L (4-12); Aspartate Amino Transferase 30 U/L (17-59); Bilirubin,Total 0.4 mg/dL (0.2-1.3); Blood Urea Nitrogen 10 mg/dL (9-20); Calcium 9.5 mg/dL (8.4-10.2); Carbon Dioxide 23 mmol/L (22-30); Chloride 108 mmol/L (98-107); Estimated Glomerular Filt Rate > 60; Glucose 108 mg/dL (65-110); INR 1.0; Potassium 4.0 mmol/L (3.4-5.0); Prothrombin Time 12.9 Seconds (11.1-14.7); Sodium 139 mmol/L (137-145); Total Protein 7.7 g/dL (6.3-8.2)
[2025-07-09 01:05] LABS: Partial Thromboplastin Time 25.7 Seconds (22.3-36.8)
[2025-07-09] MEDS: ONDANSETRON INJ 4 MG/2 ML VIAL IV PUSH (01:19)
--- NOTE | 2025-07-09 01:43 | ED.SEIZURE ---
HPI - Seizure General Chief Complaint: Weakness Stated Complaint: Weakness Time Seen by Provider: 07/09/25 01:08 Source: patient Mode of arrival: EMS Limitations: other (patient does not fully remember incident) History of Present Illness HPI Narrative: This is a 24 year old male that presents to the ER for a seizure. History of seizure disorder. Reports he has been taking his Keppra. Reports he did hit his head. Reports a mild headache. No other complaints currently. Related Data Allergies Allergy/AdvReac Type Severity Reaction Status Date / Time No Known Allergies Allergy Verified 05/16/25 16:34 Review of Systems Review of Systems: All systems reviewed & are unremarkable except as noted in HPI and below PMFSH Past Medical History Medical History Exogenous obesity Obstructive sleep apnea syndrome Seizures Social History Social History Social History: cannabis Smoking status: Smoker, status unknown Alcohol intake: never Substance use: current Substance use type: marijuana Lack of Transportation: No Lack of Food: Never True Current Housing: I Have Housing Concerned About Future Housing: No Difficulty Paying Gas/Electric Bills: No Difficulty Paying for Meds: No Exam Narrative: GENERAL: Well-appearing, well-nourished, and in no acute distress. HEAD: Normocephalic, atraumatic. EYES: PERRLA and EOMI. ENT: Nares clear, no rhinorrhea or epistaxis. Mucous membranes moist. Oropharynx without tonsillar hypertrophy exudate or other lesions. Bilateral TMs pearly luna non-bulging NECK: Supple. No adenopathy or masses. CHEST: Clear to auscultation. No respiratory distress. No wheezes rales or rhonchi HEART: Regular rate and rhythm. No murmur heard. Normal peripheral pulses. EXTREMITIES: Normal range of motion. No edema. SKIN: Warm, dry, no rash. NEURO: No focal deficits. Alert and oriented x3. CN II-XII grossly intact PSYCH: Normal mood and affect Course Vital Signs Vital signs: Vital Signs Temperature 97.5 F L 07/08/25 23:53 Pulse Rate 94 07/08/25 23:53 Respiratory Rate 18 07/08/25 23:53 Blood Pressure 124/82 07/08/25 23:53 Pulse Oximetry 98 07/08/25 23:53 Oxygen Delivery Room Air 07/08/25 23:53 Temperature 97.5 F L 07/08/25 23:53 Pulse Rate 94 07/08/25 23:53 Respiratory Rate 18 07/08/25 23:53 Blood Pressure 124/82 07/08/25 23:53 Pulse Oximetry 98 07/08/25 23:53 Oxygen Delivery Room Air 07/08/25 23:53 [facility] Narrative Medical decision making narrative: Patient presents the emergency department after a seizure at work. Known history of seizure disorder. Reports he has been taking his Keppra as prescribed. Given his dose of Keppra in the ER. He did report hitting his head. He is neurologically intact. CBC and metabolic panel without concerning findings. CT brain without acute findings. EKG without concerning changes. Patient updated on his workup. Follow up with neurology Differential Diagnosis Differential Diagnosis: seizure, concussion, subdural hemorrhage, drug abuse, medication non compliance Lab Data [facility] Lab Attestation statement: I personally reviewed the patient's lab results. 07/09/25 00:39 07/09/25 00:39 Labs: Lab Results 07/09/25 07/09/25 07/09/25 Range/Units 00:39 02:07 02:08 WBC 8.5 (4.5-10.0) K/mm3 RBC 5.43 (4.6-6.20) M/mm3 Hgb 15.6 (14.0-18.0) g/dL Hct 47.7 (42.0-52.0) % MCV 87.8 (80-100) fl MCH 28.7 (26-34) pg MCHC 32.7 (32-36) g/dl RDW 14.2 (11.5-14.5) % Plt Count 246 (150-375) k/mm3 MPV 9.1 (7.4-10.4) fl Immature Gran % (Auto) 1.4 H (0-0.5) % Neut % (Auto) 68.3 (45.5-73.1) % Lymph % (Auto) 21.1 (18.3-44.2) % [place] % (Auto) 8.7 H (2.6-8.5) % Eos % (Auto) 0.1 (0-4.4) % Baso % (Auto) 0.4 (0.2-1.2) % Lymph # (Auto) 1.79 (0.9-3.2) K/mm3 [place] # (Auto) 0.7 H (0.1-0.6) K/mm3 Eos # (Auto) 0.0 (0-0.3) K/mm3 Baso # (Auto) 0.0 (0.0-0.1) K/mm3 Abs Immat Gran (auto) 0.12 H (0.00-0.031) K/mm3 Absolute Neuts (auto) 5.8 (1.3-6.7) K/mm3 Absolute Nucleated RBC 0.000 (0.0-0.012) K/mm3 Nucleated RBC % 0.0 (0.0-0.2) % PT 12.9 (11.1-14.7) Seconds INR 1.0 APTT 25.7 (22.3-36.8) Seconds Sodium 139 (137-145) mmol/L Potassium 4.0 (3.4-5.0) mmol/L Chloride 108 H (98-107) mmol/L Carbon Dioxide 23 (22-30) mmol/L Anion Gap 8 (4-12) mmol/L BUN 10 (9-20) mg/dL Creatinine 1.18 (0.7-1.3) mg/dL Estim Creat Clear Calc Not Reportable Estimated GFR > 60 (59 - ) Glucose 108 (65-110) mg/dL Calcium 9.5 (8.4-10.2) mg/dL Total Bilirubin 0.4 (0.2-1.3) mg/dL AST 30 (17-59) U/L ALT 27 (6-50) U/L Alkaline Phosphatase 44 (38-126) U/L Total Protein 7.7 (6.3-8.2) g/dL Albumin 4.4 (3.5-5.1) g/dL Urine Color Yellow (Yellow) Urine Appearance Clear (Clear) Urine pH 5.0 (5.0-9.0) Ur Specific [place] 1.021 (1.001-1.035) Urine Protein 1+ H (Negative) mg/dL Urine Glucose (UA) Negative (Negative) mg/dL Urine Ketones Trace H (Negative) mg/dL Ur Blood (Man) 1+ H (Negative) Urine Nitrate Negative (Negative) Urine Bilirubin Negative (Negative) Urine Urobilinogen 0.2 (<2.0) mg/dL Leukocyte Esterase Rfl Negative (Negative) ELISABETH/UL Urine RBC 0-2 (0-2) /hpf Urine WBC 0-5 (0-3) /hpf Ur Squamous Epith Cells None seen (Few) /hpf Urine Bacteria None seen /hpf Urine Casts 0-2 Urine Opiates Screen Pending Urine Methadone Screen Pending Ur Barbiturates Screen Pending Ur Phencyclidine Scrn Pending Ur Amphetamine Screen Pending U Benzodiazepines Scrn Pending Urine Cocaine Screen Pending U Cannabinoids Screen Pending Ethyl Alcohol < 10 (<10) mg/dL Imaging Data Radiologist's impression: CT brain: No ICH, mass effect, or edema. No skull fracture ECG Data EKG #1: ECG completion date: 07/09/25 normal rate, sinus rhythm, no ST changes and normal QT Critical Care Time Critical Care Time Critical Care Time: No Discharge Plan Discharge Clinical Impression: Seizure Patient Disposition: Home Condition: Stable Instructions: Epilepsy (ED) Additional Instructions: Return to the emergency department if you experience fever, chest pain, shortness of breath, abdominal pain with nausea and vomiting, weakness, numbness, or any other symptoms that are concerning to you. Take your Keppra as prescribed Follow up with your neurologist Patient Language: Romanian Prescriptions: No Action levetiracetam [Keppra] 750 mg tablet 1,500 mg PO BID 30 Days Qty: 360 4RF levetiracetam [Keppra] 750 mg tablet 1,500 mg PO BID 14 Days Qty: 120 3RF Follow-up/Referrals: PHYSICIAN,VIDEO GAME TECHNICIAN [Primary Care Provider, Internal Medicine]
[2025-07-09 02:17] LABS: Add Urine Microscopic? YES; Appearance Urine Clear (Clear); Glucose Urine UA Negative (Negative); Leukocyte Esterase Ur Negative LEU/UL (Negative); Nitrate Urine Negative (Negative); Non Pathogenic Casts 0-2; Specific Grav Ur 1.021 (1.001-1.035)
[2025-07-09 02:59] LABS: Cannabinoid Screen Urine Positive (Negative)
== END 2025-07-09 03:27 | disposition home or self-care (01) ==
PROVIDERS: Emergency Provider Physician Assistant
DX: G40.909 Epilepsy, unspecified, not intractable, without status epilepticus (principal); E66.09 Other obesity due to excess calories; G47.33 Obstructive sleep apnea (adult) (pediatric)
CPT/HCPCS: 36415; 70450; 80053; 80307; 81001; 82077; 85025; 85610; 85730; 93005; 96365; 96375; 99284; J1953; J2405